=== PATIENT | female | born 1970 | race African-American/Black ===

== ENCOUNTER 2019-03-11 11:05 | Emergency (ER) | payer MEDICAID, OTHER ==
--- NOTE | 2019-03-11 11:37 | ER Document Report ---
ED Medical Screen (RME) - General Stated Complaint: ABDOMINAL PAIN Time Seen by Provider: 03/11/19 11:34 Mode of Arrival: Ambulatory Information source: Patient Notes: Patient presents complaining of left sided abdominal discomfort with a palpable mass. Patient reports mild tenderness. No fever, no nausea or vomiting. Patient is concerned she may have a hernia hx: Hysterectomy, tubal ligation, orthopedic surgery I have greeted and performed a rapid initial assessment of this patient. A comprehensive ED assessment and evaluation of the patient, analysis of test results and completion of the medical decision making process will be conducted by additional ED providers. TRAVEL OUTSIDE OF THE [place] IN LAST 30 DAYS: No - Related Data Allergies/Adverse Reactions: No Known Allergies Allergy (Verified 03/11/19 11:28) Past Medical History - Social History Chew tobacco use (# tins/day): No Frequency of alcohol use: Occasional Drug Abuse: None - Past Medical History Cardiac Medical History: Denies: Hx Coronary Artery Disease, Hx Heart Attack, Hx Hypertension Pulmonary Medical History: Denies: Hx Asthma, Hx Bronchitis, Hx COPD, Hx Pneumonia Neurological Medical History: Denies: Hx Cerebrovascular Accident, Hx Seizures Renal/ Medical History: Denies: Hx Ovarian Cysts, Hx Pelvic Inflammatory Disease Malignancy Medical History: Denies: Hx Breast Cancer, Hx Cervical Cancer, Hx Leukemia, Hx Ovarian Cancer Musculoskeltal Medical History: Denies Hx Arthritis Psychiatric Medical History: Denies: Hx Bipolar Disorder, Hx Depression, Hx Post Traumatic Stress Disorder, Hx Schizophrenia Infectious Medical History: Denies: Hx HIV Past Surgical History: Reports: Hx Orthopedic Surgery - right knee. Denies: Hx Appendectomy, Hx Bowel Surgery, Hx Section, Hx Cholecystectomy, Hx Coronary Artery Bypass Graft, Hx Gastric Bypass Surgery, Hx Herniorrhaphy, Hx Hysterectomy, Hx Mastectomy, Hx Pacemaker, Hx Tonsillectomy, Hx Tubal Ligation - Immunizations Hx Diphtheria, Pertussis, Tetanus Vaccination: No Physical Exam - Vital signs Vitals: Temp Pulse Resp BP Pulse Ox 98.1 F 62 16 118/79 97 03/11/19 11:21 03/11/19 11:21 03/11/19 11:21 03/11/19 11:21 03/11/19 11:21 - General General appearance: Appears well, Alert Notes: Small palpable bulge to the left side of abdomen Course - Vital Signs Vital signs: Temp Pulse Resp BP Pulse Ox 98.1 F 62 16 118/79 97 03/11/19 11:21 03/11/19 11:21 03/11/19 11:21 03/11/19 11:21 03/11/19 11:21
--- NOTE | 2019-03-11 12:39 | RADIOLOGY REPORT (SQ) ---
EXAM DESCRIPTION: U/S ABDOMEN LIMITED W/O DOP COMPLETED DATE/TIME: 03/11/2019 12:30 pm REASON FOR STUDY: left side abd pain, concern about hernia COMPARISON: None. TECHNIQUE: Dynamic and static grayscale images acquired of the localized site of clinical concern an d recorded on PACS. Additional selected color Doppler and spectral images recorded. SITE OF CONCERN: Umbilicus LIMITATIONS: None. FINDINGS: SKIN AND SUBCUTANEOUS TISSUES: Hypoechoic mass in the subcutaneous soft tissues. Peripher al vascularity. Measures 1.4 cm. DEEP SOFT TISSUES/MUSCLES: No masses. No fluid collections. No edema. VASCULAR: No increased or decreased vascularity. No occlusions. OTHER: No other significant finding. IMPRESSION: possible herniated fat through the abdominal wall. TECHNICAL DOCUMENTATION: JOB ID: [id number] [employer]- All Rights Reserved Reading location - IP/workstation name: [email or web address]
--- NOTE | 2019-03-11 14:01 | ER Document Report ---
ED General - General Chief Complaint: Abdominal Pain Stated Complaint: ABDOMINAL PAIN Time Seen by Provider: 03/11/19 11:34 Mode of Arrival: Ambulatory TRAVEL OUTSIDE OF THE [place] IN LAST 30 DAYS: No - HPI Notes: Patient is a 48-year-old female that presents to the emergency department for chief complaint of abdominal lump. Patient states for the last 4 days she has felt a lump in her abdomen. She states it is painful to touch. She denies any injury to the area. She denies any nausea, vomiting or diarrhea. She states the pain is worse with bearing down and with palpation. She states it is relieved some when she is at rest. She denies history of known hernias in the past. She has not taken pain medication at home. Past Medical History: Reviewed in chart Past Surgical History: Hysterectomy Social History: Denies drugs alcohol and tobacco Family History: Reviewed and noncontributory for presenting illness Allergies: Reviewed, see documented allergy list. REVIEW OF SYSTEMS: CONSTITUTIONAL : No fever No chills No diaphoresis No recent illness EENT: No vision changes No congestion No sore throat CARDIOVASCULAR: No chest pain No palpitations RESPIRATORY: No shortness of breath No cough No difficulty breathing GASTROINTESTINAL: abdominal pain No nausea No vomiting No diarrhea GENITOURINARY: No dysuria No hematuria No difficulty urinating MUSCULOSKELETAL: No back pain No leg pain No arm pain SKIN: No rashes No lesions LYMPHATIC: No swollen, enlarged glands. NEUROLOGICAL: No lightheadedness No headache No weakness No paresthesias PSYCHIATRIC: No anxiety No depression PHYSICAL EXAMINATION: Vital signs reviewed, nursing noted reviewed. GENERAL: Well-appearing, well-nourished and in no acute distress. HEAD: Atraumatic, normocephalic. EYES: Eyes appear normal, extraocular movements intact, sclera anicteric, conjunctiva are normal. ENT: nares patent, oropharynx clear without exudates. Moist mucous membranes. NECK: Normal range of motion, supple without lymphadenopathy LUNGS: Breath sounds clear to auscultation bilaterally and equal. No wheezes rales or rhonchi. HEART: Regular rate and rhythm without murmurs ABDOMEN: Soft, normoactive bowel sounds. No rebound, guarding, or rigidity. Small incisional hernia just inferior to umbilicus that is soft, mildly tender and easily reduced. No incarceration or strangulation. EXTREMITIES: Nontender, good range of motion, no pitting or edema. NEUROLOGICAL: No focal neurological deficits. Moves all extremities spontaneously Motor and sensory grossly intact on exam. PSYCH: Normal mood, normal affect. SKIN: Warm, Dry, normal turgor, no rashes or lesions noted on exposed skin - Related Data Allergies/Adverse Reactions: No Known Allergies Allergy (Verified 03/11/19 11:28) Past Medical History - General Information source: Patient - Social History Smoking Status: Never Smoker Chew tobacco use (# tins/day): No Frequency of alcohol use: Occasional Drug Abuse: None Family History: Reviewed & Not Pertinent Patient has suicidal ideation: No Patient has homicidal ideation: No - Past Medical History Cardiac Medical History: Denies: Hx Coronary Artery Disease, Hx Heart Attack, Hx Hypertension Pulmonary Medical History: Denies: Hx Asthma, Hx Bronchitis, Hx COPD, Hx Pneumonia Neurological Medical History: Denies: Hx Cerebrovascular Accident, Hx Seizures Renal/ Medical History: Denies: Hx Ovarian Cysts, Hx Pelvic Inflammatory Disease Malignancy Medical History: Denies: Hx Breast Cancer, Hx Cervical Cancer, Hx Leukemia, Hx Ovarian Cancer Musculoskeletal Medical History: Denies Hx Arthritis Psychiatric Medical History: Denies: Hx Bipolar Disorder, Hx Depression, Hx Post Traumatic Stress Disorder, Hx Schizophrenia Infectious Medical History: Denies: Hx HIV Past Surgical History: Reports: Hx Orthopedic Surgery - right knee. Denies: Hx Appendectomy, Hx Bowel Surgery, Hx Section, Hx Cholecystectomy, Hx Coronary Artery Bypass Graft, Hx Gastric Bypass Surgery, Hx Herniorrhaphy, Hx Hysterectomy, Hx Mastectomy, Hx Pacemaker, Hx Tonsillectomy, Hx Tubal Ligation - Immunizations Hx Diphtheria, Pertussis, Tetanus Vaccination: No Physical Exam - Vital signs Vitals: Temp Pulse Resp BP Pulse Ox 98.1 F 62 16 118/79 97 03/11/19 11:21 03/11/19 11:21 03/11/19 11:21 03/11/19 11:21 03/11/19 11:21 Course - Re-evaluation Re-evalutation: 03/11/19 14:01 Vitals reviewed. Nursing notes reviewed. Patient is well-appearing and in no acute distress. She had an ultrasound ordered in triage which shows a fat- containing hernia. The hernia is located at the cephalad aspect of her incision from her hysterectomy. The hernia is easily reduced. I did counseling aide her on reduction techniques as well as return precautions. She currently does not have any strangulation or incarceration of this hernia. She will be referred to surgery for follow-up. Abdomen Ultrasound 03/11/19 11:36 IMPRESSION: possible herniated fat through the abdominal wall. - Vital Signs Vital signs: Temp Pulse Resp BP Pulse Ox 98.1 F 62 16 118/79 97 03/11/19 11:21 03/11/19 11:21 03/11/19 11:21 03/11/19 11:21 03/11/19 11:21 Discharge - Discharge Clinical Impression: Incisional hernia Qualifiers: Obstruction and gangrene presence: without obstruction or gangrene Qualified Code(s): K43.2 - Incisional hernia without obstruction or gangrene; K43.91 - Incisional hernia, without obstruction or gangrene Condition: Stable Disposition: HOME, SELF-CARE Instructions: Hernia (OM) Additional Instructions: Please return to the emergency department if you have any worsening, or concern of your symptoms. Please return to the emergency department if you develop chest pain, difficulty breathing, severe abdominal pain, or ongoing vomiting. Please follow-up with your primary care physician in 2-3 days and any other recommended physicians. If prescribed, take all medications as directed. If you have any questions or concerns do not hesitate to return the emergency department for evaluation. If you feel your hernia becoming painful or bulging lie flat on your back and place an ice pack on the affected area then apply gentle pressure on the hernia to try and reduce it back in. If you are unable to reduce the hernia you should be seen back in the emergency department. Otherwise contact general surgery to discuss repair options. Referrals: MARYSOL LEWIS MD [ACTIVE STAFF] - Follow up as needed
[2019-03-11 14:09] VITALS: BP 127/76
== END 2019-03-11 14:10 | disposition home or self-care (01) ==
LOC: ER 11:05
DX: K43.2 Incisional hernia without obstruction or gangrene (principal); K43.9 Ventral hernia without obstruction or gangrene; R10.9 Unspecified abdominal pain; R19.00 Intra-abdominal and pelvic swelling, mass and lump, unspecified site
CPT/HCPCS: 76705; 99284